=== PATIENT | female | born 1970 | race Caucasian/White ===

== ENCOUNTER → 2018-08-28 16:43 | Outpatient (CLI) | payer OTHER, SELFPAY ==
--- NOTE | 2018-08-28 16:45 | DI.RAD.S_ITS ---
PROCEDURE: XR WRIST LT MIN 3V INDICATIONS: L arm pain s/p FOOSH, please R/O distal radius fx TECHNIQUE: 3 views of the wrist were acquired. COMPARISON: None. FINDINGS: Bones: No fractures or dislocations. No suspicious bony lesions. Scaphoid view: Scaphoid is grossly intact. Soft tissues: No suspicious soft tissue calcifications. IMPRESSION: No gross acute wrist fracture or dislocation. Dictated by: Meng Candelaria M.D. on 08/28/2018 at 17:55 Approved by: Meng Candelaria M.D. on 08/28/2018 at 17:57
--- NOTE | 2018-08-28 16:45 | DI.RAD.S_ITS ---
PROCEDURE: XR ELBOW LT MIN 3V INDICATIONS: L arm pain s/p FOOSH, please R/O distal radius fx TECHNIQUE: 3 views of the elbow were acquired. COMPARISON: None. FINDINGS: Bones: No fractures or dislocations. No suspicious bony lesions. Soft tissues: No elbow joint effusion. No suspicious soft tissue calcifications. IMPRESSION: No gross acute elbow fracture or dislocation. Dictated by: Meng Candelaria M.D. on 08/28/2018 at 17:16 Approved by: Meng Candelaria M.D. on 08/28/2018 at 17:19
--- NOTE | 2018-08-28 16:45 | DI.RAD.S_ITS ---
PROCEDURE: XR HUMERUS LT 2V INDICATIONS: L arm pain s/p FOOSH, please R/O distal radius fx TECHNIQUE: 3 views of the humerus were acquired. COMPARISON: None. FINDINGS: Bones: No fractures or dislocations. No suspicious bony lesions. Soft tissues: No suspicious soft tissue calcifications. IMPRESSION: No acute right humeral fracture or dislocation. Dictated by: Meng Candelaria M.D. on 08/28/2018 at 17:12 Approved by: Meng Candelaria M.D. on 08/28/2018 at 17:16
== END ==
PROVIDERS: Visit Provider Physician Assistant
DX: M79.602 Pain in left arm (principal)
CPT/HCPCS: 73060; 73080; 73110

== ENCOUNTER → 2018-11-07 11:33 | Outpatient (CLI) | payer OTHER, SELFPAY | PROVIDERS: Visit Provider Physician Assistant | DX: R68.89 Other general symptoms and signs (principal) | CPT/HCPCS: 87400 ==

== ENCOUNTER → 2019-08-10 15:08 | Outpatient (CLI) | payer OTHER, SELFPAY ==
[2019-08-10 15:47] LABS: Influenza A - CEPHEID Flu A NEGATIVE (NEGATIVE); Influenza B - CEPHEID Flu B NEGATIVE (NEGATIVE)
== END ==
PROVIDERS: Visit Provider Nurse Practitioner
DX: R05 Cough (principal)
CPT/HCPCS: 87502